=== PATIENT | male | born 1995 | race African-American/Black ===

== ENCOUNTER 2024-01-29 18:48 | Emergency (ER) | payer MEDICAID ==
[~2024-01-29] VITALS: Ht 182.9 cm; Wt 100.6 kg
[2024-01-29 19:10] VITALS: BP 129/72; PULSE 98; RESP 16; O2SAT 95
== END 2024-01-29 20:14 | disposition left against medical advice (07) ==
LOC: ER 18:48
DX: R07.0 Pain in throat (principal); R22.1 Localized swelling, mass and lump, neck; R00.2 Palpitations; R05.9 Cough, unspecified; Z53.21 Procedure and treatment not carried out due to patient leaving prior to being seen by health care provider